=== PATIENT | female | born 1975 | race Hispanic/Latino ===

== ENCOUNTER 2023-12-28 06:33 | Day surgery (SDC) | payer BC, SELFPAY ==
[2023-12-24 08:38] VITALS: BMI 40.5
[2023-12-24 08:58] LABS: Hematocrit 37.7 % (37.0-47.0); Hemoglobin 12.8 g/dL (12.0-16.0); Mean Corpuscular Hgb 30.9 pg (27.0-31.0); Mean Corpuscular Volume 91.1 fL (81.0-99.0); Mean Platelet Volume 10.9 fL (7.4-10.4); Platelet Count 332 10^3/uL (130-400); Red Blood Cell Count 4.14 10^6/uL (4.20-5.40); Red Cell Dist. Width 14.2 % (11.5-14.5); White Blood Cell Count 7.2 10^3/uL (4.8-10.8)
[2023-12-24 09:03] LABS: Urine Albumin Trace (Neg - Trace); Urine Bilirubin Negative (Negative); Urine Character Slightly Cloudy (Clear); Urine Color Yellow; Urine Glucose Negative (Negative); Urine Ketone Negative (Negative); Urine Leukocyte 2+ (Negative); Urine Nitrite Negative (Negative); Urine Occult Blood 3+ (Negative); Urine Urobilinogen Negative (Neg - 1+)
[2023-12-24 09:13] LABS: INR 0.88; PT 12.1 Sec (11.4-14.6)
[2023-12-24 09:14] LABS: APTT 28.8 Sec (23.4-35.0)
[2023-12-24 09:28] LABS: Blood Urea Nitrogen 15 mg/dl (7-17); Calcium 9.7 mg/dl (8.4-10.2); Carbon Dioxide 27 mmol/L (22-30); Chloride 100 mmol/L (98-107); Estimated Creatinine Clearance > 125 ml/min; Glucose 91 mg/dl (70-99); Potassium 4.4 mmol/L (3.5-5.1); Sodium 137 mmol/L (135-145); eGFR > 60.00
[2023-12-24 10:22] LABS: Urine Squamous Cell >30 /LPF (Few)
[2023-12-24 10:23] LABS: Urine Bacteria Many (Negative)
[2023-12-24 10:24] LABS: Urine White Cell 60-70 /HPF (0-5)
[2023-12-24 10:25] LABS: Urine Calcium Oxalate Crystals Seen
--- NOTE | 2023-12-24 13:49 | PTCARENOTE ---
Lizbeth at 's office was notified of abnormal urinalysis collected today.
[2023-12-28] VITALS (12 sets, daily range): BP systolic 116–141; BP diastolic 72–100; BMI 40.5
[2023-12-28] MEDS: NORMOSOL-R 1000 IV (08:09)
[2023-12-28 08:16] LABS: HCG, Urine Qualitative Screen Negative
[2023-12-28] MEDS: DILAUDID 0.25 MG IV (10:38)
[2023-12-28] MEDS: Pyridium 200 MG PO (11:12)
[2024-01-01 17:22] LABS: Stone Analysis Mass 2 mg
== END 2023-12-28 12:27 | disposition home or self-care (01) ==
LOC: SDS 06:33
PROVIDERS: ATTENDING PHYSICIAN Specialist; FAMILY PHYSICIAN Physician Assistant Medical
DX: N20.0 Calculus of kidney (principal)
CPT/HCPCS: 52356; 36415; 74018; 76000; 80048; 81003; 81015; 81025; 82365; 85027; 85610; 85730; 87086; 93005; A4300; C1894; C2617; J1580

== ENCOUNTER 2025-02-07 09:06 | Emergency (ER) | payer BC, SELFPAY ==
[2025-02-07] VITALS (7 sets, daily range): BP systolic 111–141; BP diastolic 68–90; PULSE 65; O2SAT 99; BMI 43.2
--- NOTE | 2025-02-07 10:17 | ED.GENMED ---
History of Present Illness
General
Chief Complaint: Dizziness
Source: patient
Exam Limitations: none
Time Seen by Provider: 02/07/25 09:33
Nursing documentation reviewed up to this point in time: agreed with
History of Present Illness
History of Present Illness:
49-year-old female history of hypertension social drinker non-smoker presents with dizziness, while driving room was spinning, she felt anxious pressure in her chest right arm numbness lasted 20 to 30 minutes, symptoms have resolved, symptoms are
worse with head movement better with rest, no slurred speech, no prior episodes no arm or leg weakness no fevers no rash
Past History
Past History
ED Past Medical History: HTN and Other (renal calc, Thyroid nodules)
ED Past Surgical History: Urological
Social History
Tobacco: Former smoker
Alcohol: Occasional
Drug: None
Personal:
Living: with family
Employment: Employed
Family History
Family History: Other (Grandparent with stroke)
Review of Systems
Review of Systems
All Other Systems: Not applicable
Constitutional: Denies fever
EENT: Reports no symptoms
Respiratory: Reports no symptoms
Cardiac: Reports chest pain and palpitations; Denies diaphoresis or syncope
ABD/GI: Reports nausea
Musculoskeletal: Reports no symptoms
Neurological: Reports dizzy and numbness; Denies headache or weakness
Endocrine: Reports no symptoms
Hematologic/Lymphatic: Reports no symptoms
Phy Exam
Physical Exam
Physical Exam:
Physical Exam
General: no apparent distress, not acutely ill
Neck: Pupils round react
Heart: s1/s2 regular rate and rhythm, no murmur. equal radial pulses.
Lungs: no acute respiratory distress. clear bilaterally
Abdomen: Not tender
Neuro: alert and oriented. no focal neurological deficits muscle strength 5 out of 5 upper and lower, no facial palsy no slurred speech 2 beats of horizontal nystagmus
Skin: no rash
Psychiatric: well kept. interactive and cooperative
Extremities: no edema.
Course
Orders/Labs/Results
Orders:
Orders
02/07/25 09:11
EKG [Electrocardiogram (*1)] Urgent
Reason for Study: Vertigo / Dizzy
02/07/25 09:12
EKG- Treatment ONCE
02/07/25 10:05
CT Head W/o Iv Contrast Urgent
Comment:
Reason For Exam: dizzy r arm numnbess
02/07/25 10:07
Complete Blood Count/With Diff Urgent
Comprehensive Metabolic Panel Urgent
Troponin I Urgent
02/07/25 10:33
Physical Therapy Consult [Pt Eval And Treat] Urgent
Treatment: vestibular thanks
Activity Level: Ambulate
Abnormal Lab Results
02/07/25
10:07
RBC 3.92 L 10^6/uL
(4.20-5.40)
Hct 35.8 L %
(37.0-47.0)
02/07/25 10:07
02/07/25 10:07
Vital Signs
Initial and Last Documented VS:
Initial Vital Signs
Temp Pulse Resp BP Pulse Ox
97.5 F 77 16 141/90 98
02/07/25 09:09 02/07/25 09:09 02/07/25 09:09 02/07/25 09:09 02/07/25 09:09
Last Documented Vital Signs
Temp Pulse Resp BP Pulse Ox
97.5 F 66 16 117/68 94
02/07/25 09:09 02/07/25 12:00 02/07/25 12:00 02/07/25 12:00 02/07/25 12:00
MDM/Problems Addressed
Differential Diagnosis Includes:
Vertigo panic attack arrhythmia CVA TIA mass seizure
MDM/Problems Addressed:
Dizziness, right arm
Chronic conditions affecting care: HTN
Acute Exacerbation and/or Progression of Chronic Illness: HTN
*EKG
Interpreted by ED Provider?: Yes
Interpretation: normal
Comparison EKG: no comparison EKG present
Heart Rate: 78
Rate: normal
Rhythm: sinus
Ischemia: no ischemia
*Doll Wig Hackler Interpretation
Rate: normal
Interpretation: normal
Heart Rate: 78
Rhythm: sinus
*Critical Care Note
Total Time (30-74mins, 75-104mins- exclusive of procedures): Not Applicable
Update Note
Update Note:
10:[address] report noted will ask for physical therapy vestibular evaluation
1220 update patient feeling better workup negative
ED Attending Note
-
Portions of this chart may have been created with voice recognition software.� Occasional wrong word or��sound alike� substitutions may have occurred due to the inherent limitations of voice recognition software.
Discharge Plan
Departure
Patient Disposition: Home (Routine Discharge)
Date of Disposition: 02/07/25
Time of Disposition: 12:20
Patient with high blood pressure during this ER visit?: No
Condition: Good
Covid-19: Not Applicable
Discharge Problem:
Dizziness
Instructions: Dizziness, Nonvertigo, (DC)
Prescriptions:
New
meclizine [Antivert] 25 mg tablet,chewable
25 mg PO Q8HPRN PRN (Reason: nausea or vertigo) Qty: 20 0RF
No Action
lisinopril 40 MG tablet
40 mg PO QPM
multivitamin Tablet
1 tab PO DAILY
ibuprofen [Advil] 200 mg Tablet
400 mg PO Q6H PRN (Reason: PAIN)
omeprazole magnesium [Prilosec OTC] 20 mg Tablet,Delayed Release (Dr/Ec)
20 mg PO DAILY
Referrals:
Hemple,Naeem, PA-C [Family Provider] - Next open appointment
Activity Restrictions/Additional Instructions:
Drink plenty of fluids, Antivert every 6-8 hours as needed for dizziness nausea or vomiting
Follow-up with your primary care provider
Interventions
Interventions:
*Risk Screen - Suicide Last Done: 02/07/25 09:09
*General Assessment Last Done: 02/07/25 10:11
*Neglect/Abuse Screening Last Done: 02/07/25 09:09
*ED- Fall Risk Assessment Last Done: 02/07/25 10:11
*ED COVID-19 Vaccine History Last Done: 02/07/25 10:11
ED- Neurological Assessment Last Done: 02/07/25 10:51
ED- Cardiac Assessment Last Done: 02/07/25 10:51
Discharge Date and Time
Print Language: BANGLADESHI
[2025-02-07 10:21] LABS: % Basophils 0.8 % (0-2); % Eosinophils 3.1 % (0-6); % Immature Granulocytes 0.3 % (0-0.5); % Lymphocytes 27.7 % (20.5-51.1); % Monocytes 8.7 % (1.7-9.3); % Neutrophils 59.4 % (42.2-75.2); Absolute Basophils 0.1 10^3/uL (0-0.2); Absolute Eosinophils 0.2 10^3/uL (0-0.7); Absolute Lymphocytes 1.8 10^3/uL (1.2-3.4); Absolute Monocytes 0.6 10^3/uL (0.1-0.6); Absolute Neutrophils 3.8 10^3/uL (1.4-6.5); Hematocrit 35.8 % (37.0-47.0); Hemoglobin 12.1 g/dL (12.0-16.0); Mean Corp Hgb Conc. 33.8 g/dL (33.0-37.0); Mean Corpuscular Hgb 30.9 pg (27.0-31.0); Mean Corpuscular Volume 91.3 fL (81.0-99.0); Nucleated Red Blood Cells % 0 %; Platelet Count 263 10^3/uL (130-400); Red Blood Cell Count 3.92 10^6/uL (4.20-5.40); Red Cell Dist. Width 14.4 % (11.5-14.5); White Blood Cell Count 6.4 10^3/uL (4.8-10.8)
[2025-02-07 10:35] LABS: ALT (SGPT) 32 U/L (0-35); AST (SGOT) 18 U/L (14-36); Alkaline Phosphatase 88 U/L (38-126); Blood Urea Nitrogen 17 mg/dl (7-17); Calcium 9.7 mg/dl (8.4-10.2); Carbon Dioxide 27 mmol/L (22-30); Chloride 104 mmol/L (98-107); Estimated Creatinine Clearance 109 ml/min; Glucose 96 mg/dl (70-99); Potassium 4.5 mmol/L (3.5-5.1); Sodium 135 mmol/L (135-145); Total Bilirubin 0.5 mg/dl (0.2-1.3); Total Protein 6.8 g/dl (6.3-8.2); eGFR > 60.00
[2025-02-07 10:46] LABS: Troponin I < 0.012 ng/ml
--- NOTE | 2025-02-07 11:01 | EDRN ---
PT at bedside with patient
== END 2025-02-07 12:47 | disposition home or self-care (01) ==
LOC: EMR 09:06
PROVIDERS: EMERGENCY PHYSICIAN Emergency Medicine; FAMILY PHYSICIAN Physician Assistant Medical
DX: R42 Dizziness and giddiness (principal); I10 Essential (primary) hypertension; Z82.3 Family history of stroke; Z87.891 Personal history of nicotine dependence
CPT/HCPCS: 99284; 70450; 80053; 84484; 85025; 93005

== ENCOUNTER → 2025-06-08 14:21 | Outpatient (REF) | payer BC, SELFPAY | LOC: RAD 14:21 | PROVIDERS: ATTENDING PHYSICIAN Specialist; FAMILY PHYSICIAN Physician Assistant Medical | DX: N20.0 Calculus of kidney (principal) | CPT/HCPCS: 74018 ==